=== PATIENT | female | born 1960 | race Caucasian/White ===

== ENCOUNTER 2017-05-05 12:22 | Emergency (ER) | payer OTHER ==
[~2017-05-05] VITALS: Ht 175.3 cm; Wt 89.4 kg
--- OUTSIDE RECORDS SUMMARY | 2017-05-05 12:28 | External Medical Summary Rpt | CCD ---
Author Author , EDDIE MORGAN Address Unknown Phone Purpose Continuity of Care Document - 12-17-2011 through 2016 Problems Code Diagnosis DOS Provider Status 83502 ERRONEOUS ENCOUNTER-- DISREGARD E03.9 Hypothyroid ism, unspecified E11.9 Type 2 diabetes mellitus without complicatio ns E78.5 Hyperlipide kong, unspecified F33.0 Major depressive disorder, recurrent, mild G89.29 Other chronic pain I10 Essential (primary) hypertensio n M54.2 Cervicalgia R92.2 Inconclusiv e mammogram Z13.220 Encounter for screening for lipoid disorders
--- OUTSIDE RECORDS SUMMARY | 2017-05-05 12:28 | External Medical Summary Rpt | CCD ---
Author Author [employer] Organization [employer] Address Unknown Phone Unavailable Purpose Continuity of Care Document - through 2016
--- OUTSIDE RECORDS SUMMARY | 2017-05-05 12:28 | External Medical Summary Rpt | CCD ---
Author Author , EDDIE MORGAN Address Unknown Phone [email or web address] Purpose Continuity of Care Document - 12-17-2011 through 2016 Problems Code Diagnosis DOS Provider Status 63315 ERRONEOUS ENCOUNTER-- DISREGARD E03.9 Hypothyroid ism, unspecified E11.9 Type 2 diabetes mellitus without complicatio ns E78.5 Hyperlipide kong, unspecified F33.0 Major depressive disorder, recurrent, mild G89.29 Other chronic pain I10 Essential (primary) hypertensio n M54.2 Cervicalgia R92.2 Inconclusiv e mammogram Z13.220 Encounter for screening for lipoid disorders
--- OUTSIDE RECORDS SUMMARY | 2017-05-05 12:28 | External Medical Summary Rpt | CCD ---
Demographics Home Phone Preferred Language Indonesian Marital Status Unknown Amish Affiliation Unknown Race Unknown Ethnic Group Unknown Author Author , EDDIE MORGAN Address Unknown Phone [email or web address] Immunization Name Date Rout CVX Reac Dose Comm Prov Is Faci e tion ent ider Refu lity Give sed n Infl 10-1 88 999 Hist D202 No D202 uenz 5-20 oric 94 94 a, 16 al UF Info rmat ion - Sour ce Unsp ecif ied Infl 10-1 88 999 Hist D202 No D202 uenz 5-20 oric 94 94 a, 15 al UF Info rmat ion - Sour ce Unsp ecif ied Td 03-0 9 999 Hist H196 No H196 (naina 5-19 oric lt), 97 al Info adso rmat rbed ion - Sour ce Unsp ecif ied
--- OUTSIDE RECORDS SUMMARY | 2017-05-05 12:28 | External Medical Summary Rpt | CCD ---
Demographics Home Phone Preferred Language Vietnamese Marital Status Unknown Moravian Affiliation Unknown Race Unknown Ethnic Group Unknown Author Author , EDDIE MORGAN Address Unknown Phone [email or web address] Immunization Name Date Rout CVX Reac Dose [...]
--- OUTSIDE RECORDS SUMMARY | 2017-05-05 12:30 | External Medical Summary Rpt ---
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 Plasma TSH Observa Value Referen Units Interpr Notes Date tion ce etation Range Thyrotr 2.090 0.270 - mcIU/mL No No Jul 01 opin 4.200 informa informa 2014 [Units/ tion in tion in 3:50 PM volume] source source in data data Serum or Plasma Lipid Refx Observa Value Referen Units Interpr Notes Date tion ce etation Range Cholest 179 <=200 mg/dL No < 200 Jul 01 travis informa 2015 [Percen tion in 3:50 PM tile] source Desirab data le\.br\ 200 - 239 Borderl ine High\.b r\>= 240 High TRIGLYC 127 <=150 mg/dL No < 150 Jul 01 ERIDES. informa 2015 TOTAL tion in Normal\ 3:50 PM source .br\150 data - 199 Borderl ine High\.b r\200 - 499 High\.b r\ >= 500 Very High CHOLEST 56 >=40 mg/dL No > 60 Jul 01 EROLS.I informa 2015 N HDL tion in Optimal 3:50 PM source \.br\40 data - 60 Accepta ble\.br \ < 40 Low LDL Observa Value Referen Units Interpr Notes Date tion ce etation Range LDL 98 <=100 mg/dL No < 100 Jul 01 Calcula informa 2015 odalys tion in 3:50 PM source Optimal data \.br\10 0 - 129 Near or above optimal \.br\13 0 - 159 Borderl ine High\.b r\160 - 189 High\.b r\ >= 190 Very High Glyco Observa Value Referen Units Interpr Notes Date tion ce etation Range Hemoglo 6.0 <=7.0 % No Initial Aug 12 bin informa 2014 A1c/Hem tion in Diagnos 1:16 PM oglobin source tic .total data Criteri in a\.br\< Blood 5.7 % Normal\ .br\5.7 - 6.4 % At risk for diabete s mellitu s\.br\> = 6.5 % Consist ent with diabete s mellitu s\.br\\ .br\Cynthia betes monitor ing\.br \Target Value (ADA recomme nded): < 7 % Diff Observa Value Referen Units Interpr Notes Date tion ce etation Range Polychr Slight No No No No Aug 10 om informa informa informa informa 2013 tion in tion in tion in tion in 8:15 PM source source source source data data data data Crenate Occasio No No No No Aug 10 d Cell nal informa informa informa informa 2013 tion in tion in tion in tion in 8:15 PM source source source source data data data data Auto Diff Observa Value Referen Units Interpr Notes Date tion ce etation Range Neutrop 64.3 No % No No Aug 10 hils informa informa informa 2013 [#/volu tion in tion in tion in 8:15 PM me] in source source source Blood data data data by Automat ed count Lymphoc 26.8 No % No No Aug 10 ytes informa informa informa 2013 [#/volu tion in tion in tion in 8:15 PM me] in source source source Blood data data data by Automat ed count Monocyt 6.5 No % No No Aug 10 es informa informa informa 2013 [#/volu tion in tion in tion in 8:15 PM me] in source source source Blood data data data by Automat ed count Eos 2.1 No % No No Feb 21 Percent informa informa informa 2013 tion in tion in tion in 8:15 PM source source source data data data Baso 0.3 No % No No Feb 21 Percent informa informa informa 2014 tion in tion in tion in 8:15 PM source source source data data data Neut# 2.4 1.8 - x10(3)/ No No Feb 21 7.7 mcL informa informa 2013 tion in tion in 8:15 PM source source data data Lymph# 1.0 0.6 - x10(3)/ No No Feb 21 4.8 mcL informa informa 2014 tion in tion in 8:15 PM source source data data Fillmore# 0.2 0.0 - x10(3)/ No No Feb 21 1.3 mcL informa informa 2013 tion in tion in 8:15 PM source source data data Eos# 0.1 0.0 - x10(3)/ No No Feb 21 0.5 mcL informa informa 2013 tion in tion in 8:15 PM source source data data Baso# 0.0 0.0 - x10(3)/ No No Feb 21 0.2 mcL informa informa 2013 tion in tion in 8:15 PM source source data data CBC Observa Value Referen Units Interpr Notes Date tion ce etation Range LEUKOCY 3.8 4.0 - x10(3)/ Low No Feb 21 LAURENT 11.0 mcL informa 2013 tion in 8:15 PM source data Erythro 4.44 3.80 - x10(6)/ No No Feb 21 cytes 5.10 mcL informa informa 2013 [#/volu tion in tion in 8:15 PM me] in source source Blood data data by Automat ed count Hemoglo 13.4 12.0 - gm/dL No No Feb 21 bin 15.6 informa informa 2013 [Mass/v tion in tion in 8:15 PM olume] source source in data data Blood Hematoc 39.6 35.7 - % No No Feb 21 rit 45.9 informa informa 2013 [Volume tion in tion in 8:15 PM source source Fractio data data n] of Blood by Automat ed count Erythro 89.1 82.5 - fL No No Aug 10 cyte 99.8 informa informa 2014 mean tion in tion in 8:15 PM corpusc source source ular data data volume [Entiti c volume] by Automat ed count Erythro 30.1 27.0 - pg No No Aug 10 cyte 34.3 informa informa 2014 mean tion in tion in 8:15 PM corpusc source source ular data data hemoglo bin [Entiti c mass] by Automat ed count Erythro 33.8 32.1 - gm/dL No No Aug 10 cyte 35.3 informa informa 2014 mean tion in tion in 8:15 PM corpusc source source ular data data hemoglo bin concent ration [Mass/v olume] by Automat ed count Erythro 14.4 11.5 - % No No Aug 10 cyte 15.0 informa informa 2014 distrib tion in tion in 8:15 PM ution source source width data data [Ratio] by Automat ed count Platele 163 144 - x10(3)/ No No Aug 10 ts 423 mcL informa informa 2013 [#/volu tion in tion in 8:15 PM me] in source source Blood data data by Automat ed count MPV 9.5 6.8 - fL No No Aug 10 10.8 informa informa 2014 tion in tion in 8:15 PM source source data data Free T4 Observa Value Referen Units Interpr Notes Date tion ce etation Range Thyroxi 1.87 0.93 - ng/dL High No Aug 10 ne (T4) 1.70 informa 2014 free tion in 6:13 PM [Mass/v source olume] data in Serum or Plasma Lipid Scr Observa Value Referen Units Interpr Notes Date tion ce etation Range Cholest 161 <=200 mg/dL No < 200 Aug 10 travis informa 2014 [Percen tion in 6:12 PM tile] source Desirab data le\.br\ 200 - 239 Borderl ine High\.b r\>= 240 High TRIGLYC 70 <=150 mg/dL No < 150 Aug 10 ERIDES. informa 2014 TOTAL tion in Normal\ 6:12 PM source .br\150 data - 199 Borderl ine High\.b r\200 - 499 High\.b r\ >= 500 Very High CHOLEST 58 >=40 mg/dL No > 60 Aug 10 EROLS.I informa 2013 N HDL tion in Optimal 6:12 PM source \.br\40 data - 60 Accepta ble\.br \ < 40 Low LDL 89 <=100 mg/dL No < 100 Aug 10 Calcula informa 2014 odalys tion in 6:13 PM source Optimal data \.br\10 0 - 129 Near or above optimal \.br\13 0 - 159 Borderl ine High\.b r\160 - 189 High\.b r\ >= 190 Very High TSH Observa Value Referen Units Interpr Notes Date tion ce etation Range Thyrotr 0.024 0.270 - mcIU/mL Low No Aug 10 opin 4.200 informa 2013 [Units/ tion in 6:13 PM volume] source in data Serum or Plasma HPV Results Observa Value Referen Units Interpr Notes Date tion ce etation Range HPV Thin No No No TEST Apr 5 Specime Prep informa informa informa INFORMA 2013 n tion in tion in tion in TION: 10:18 source source source HPV DNA AM data data data Probe, High Risk, Thin Prep Specime n.\.br\ The High-ri sk HPV test detects HPV genotyp es 16,18,3 1,33,39 ,45,51, 52,58,5 9, and 68, which are associa odalys with cervica l cancer and its precurs or lesions .\.br\H owever, cross-r eaction s with other genotyp es may occur. Results should be correla odalys with cytolog ic and histolo gic finding s.\.br\ This test is an amplfie d DNA signal assay by Praneeth boateng, validat ed by [facility] are Laborat ory in conjunc tion with [employer]. HPV Negativ No No No No Nov 5 HIGH e informa informa informa informa 2013 RISK tion in tion in tion in tion in 10:18 source source source source AM data data data data MM US BREAST LEFT Observa Value Referen Units Interpr Notes Date ti ce etation Range MM US No No No No Toño 10 BREAST informa informa informa informa 2013 LEFT\.b tion in tion in tion in tion in 9:27 AM r\LEFT source source source source BREAST data data data data ULTRASO UND, 12-27-12 :\.br\C omparis on: Same day mammogr ams.\.b r\Histo ry: 52 year old female returns for additio nal views of the left\.b r\breas t for increas ed focal asymmet janeen density in the subareo lar left\.b r\breas t\.br\o n recent screeni ng mammogr am.\.br \Findin gs:\.br \Target ed scannin g of the subareo lar left breast was perform ed by the\.br \sonogr aphcintia and by Dr. Camille pena. There is general ized moderat e dilatat ion\.br \of ducts in the left breast, greates t in the subareo lar and retro-a reolar\ .br\pos itions. These dilated ducts are mostly fluid filled, althoug h several \.br\co ntain a small amount of debris within them.\. br\No solid mass lesion is identif ozzie within these ducts nor in the adjacen t\.br\b reast tissue. A circums cribed oval shaped 8 mm. benign appeari ng cyst is\.br\ noted at the 9:00 positio n of the left breast 4 cm. from the nipple. 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 \.br\No suspici ous solid mass identif ied in the subareo lar left breast. \.br\Re commend ation; The patient should continu e with age-ramon ropriat e\.br\f ollow-u p.\.br\ Annual screeni ng mammogr aphy is recomme nded in one year.\. br\Find ings and recomme ndation s were discuss ed with the patient at the\.br \conclu lucho of the procedu re by Dr. Camille stern\.br\ RECOMME NDATION :\.br\R outine screeni ng mammogr am of both breasts in 1 year.\. br\[place] ge on clinica l grounds . MM MAMMO DIGITAL DIAGNOSTIC LEFT Observa Value Referen Units Interpr Notes Date tion ce etation Range Procedu No No No No Dec 27 re:MM informa informa informa informa 2012 MAMMO tion in tion in tion in tion in 9:12 AM DIGITAL source source source source data data data data DIAGNOS TIC LEFT\.b r\Reaso n for exam: additio nal evaluat ion request ed from abnorma l screeni ng.\.br \MM MAMMO DIGITAL DIAGNOS TIC LEFT\.b r\CC and MLO view(s) were taken of the left breast. \.br\DI AGNOSTI C LEFT MAMMOGR APHY WITH CAD ANALYSI S, 12-27-12 :\.br\C omparis on: Multipl e prior mammogr ams, most recent of which is screeni ng\.br\ mammogr ams from 12-22-12. \.br\Hi story: 52 year old female returns for additio nal views of the left\.b r\breas t for increas ed focal asymmet janeen density in the subareo lar left\.b r\breas t\.br\o n recent screeni ng mammogr am.\.br \Findin gs:\.br \Breast tissue is heterog eneousl y dense, which may lower the sensiti vity of\.br\ mammogr aphy.\. br\On additio nal views of the left breast, which include spot elsi lucho CC\.br\ and MLO views perform ed in the retro-a reolar region, there is persist ent\.br \asymme tric density in the subareo lar left breast. This appears somewha t\.br\t ubular, suggest sarai of duct ectasia . No definit e discret e mass lesion or\.br\ archite ctural distort ion is identif ied.\.b r\IMPRE SSION: Incompl ete-nee d additio nal imaging evaluat ion\.br \(ACR-C ategory -0)\.br \There is persist ent asymmet janeen density in the subareo lar left breast ,\.br\w hich may related to duct ectasia . This will be further assesse d with left\.b r\breas t ultraso und.\.b r\RECOM MENDATI ON:\.br \Ultras ound of the left breast, this ultraso und examina tion was perform ed\.br\ on\.br\ 12-27-12 and will be reporte d separat robinson.\.b r\* The patient with a palpabl e abnorma lity, unexpla ined by breast\ .br\radha ging, should be managed on clinica l basis by the attendi ng physici an.\.br \* Breast imaging has a false negativ e rate of 15%.\.b r\* The patient was notifie d by mail of the results of this examina tion.\. br\*The patient 's informa tion was entered into a [employer] system with a\.br\t arget\. br\due date for the next mammogr am. MM MAMMO DIGITAL SCREENING W CAD BILAT Observa Value Referen Units Interpr Notes Date tion ce etation Range Procedu No No No No Dec 22 re:MM informa informa informa informa 2012 MAMMO tion in tion in tion in tion in 8:04 AM DIGITAL source source source source data data data data SCREENI NG W CAD BILAT\. br\Reas on for exam: history of benign breast biopsy. \.br\MM MAMMO DIG SCREEN CAD BILAT\. br\Bila teral CC and MLO view(s) were taken.\ .br\The breast tissue is heterog eneousl y dense. This may lower the\.br \sensit ivity\. br\of mammogr aphy. There is increas ed focal asymmet janeen density in the\.br \subare olar left breast. Mammogr am of the contral ateral breast reveals no\.br\ evidenc e of maligna ncy. No suspici ous calcifi cations . Compare d to prior\. br\stud ies the most recent being 12-17-11 .\.br\I MPRESSI ON: Incompl ete-nee d additio nal imaging evaluat ion\.br \(ACR-C ategory -0)\.br \RECOMM ENDATIO N:\.br\ Special view mammogr am of the left breast. \.br\* The patient with a palpabl e abnorma lity, unexpla ined by breast\ .br\radha ging, should be managed on clinica l basis by the attendi ng physici an.\.br \* Breast imaging has a false negativ e rate of 15%.\.b r\* The patient was notifie d by mail of the results of this examina tion.\. br\*The patient 's informa tion was entered into a [employer] system with a\.br\t arget\. br\due date for the next mammogr am.\.br \The mammogr am was reviewe d by a Radiolo gist and CAD. MRI CERVICAL SPINE WO CONTRAST Observa Value Referen Units Interpr Notes Date tion ce etation Range TEXT MRI of No No No No Feb 07 DIAGNOS the informa informa informa informa 2011 IS cervica tion in tion in tion in tion in 7:33 AM BATTERY l spine source source source source data data data data without contras t, 02/08/20 12HISTO RY: Neck and left arm pain. Prior spinal fusion. FINDING S:Dayo rison is made with prior cervica l spine MRI dated 10/29/19 09.The cervica l vertebr al bodies are normal in height. The cervica l spinalc ord is normal incalib er and signal. At C2-C3, minimal left paracen tral discoge elham changes are identif ied, whichmi nimally indent the ventral aspect of the thecal sac without evidenc e ofcervi julio écsar cord ornerve root elsi lucho.At C3-C4, mild right paracen tral and right foramin al discoge elham changes are identif ied, whichmi ldly indent the ventral aspect of the thecal sac in a right paracen tralloc ation and causemi ld relativ e narrowi ng of the right C4 neural foramen . There are severed egenera tive changes of the posteri or articul ar facets on the left at the C3-C4 level. There issubse quent moderat eto severe narrowi ng of the left C4 neural foramen on a degener ative basis,u nchange d from priorst udy of 10/29/19.At C4-C5, minimal central discoge elham changes are identif ied, whichmi nimally indent the ventral aspect of the thecal sac without evidenc e of cervica l cord or nerve rootcom pressio n,uncha nged from 10/29/19 study.A t C5-C6, there is evidenc e of prior anterio r discect steve and fusion. Thereis a minimal 1 to 2mm retroli sthesis of C5 on C6, unchang ed. At C5-C6, mild diffuse hypertr ophic spurrin g isident ified, which appears more focally promine nt in a right paracen tral,wh ich mildlyc ompress es the ventral aspect of the thecal sac, slightl y greater [facility] tr[facility] ation and causes bilater al narrowi ng of the C6 neural foramin a, whichis mild to moderat e insever ity, unchang ed from study of 10/29/19.The C6-C7 and C7-T1 interve rtebral disc spaces are normal. IMPRESS ION: Evidenc e of prior anterio r discect steve and fusion at C5-C6.M ild diffuse hypertr ophic spurrin g at C5-C6, which appears more focally promine nt in [facility] paracen tralloc ation, which mildly elsi ses the ventral aspect of the thecal sac,sli ghtly greater in [facility] paracen tral locatio n and causes mild to moderat e narrowi ng of the [id number] l foramin a,uncha nged from prior study of 10/29/19.Othe r milder multile adrian discoge elham changes of the cervica l spine asdescr ibed above. Nodefin ite interva l change from prior study of 10/29/19. MM MAMMO DIGITAL SCREENING W CAD BILAT Observa Value Referen Units Interpr Notes Date tion ce etation Range TEXT Procedu No No No No Dec 16 DIAGNOS re:MM informa informa informa informa 2011 IS MAMMO tion in tion in tion in tion in 3:26 PM BATTERY DIGITAL source source source source data data data data SCREENMariann GREEN W CAD BILATRe ason for exam: maxi green (asympt omatic) .MM MAMMO DIG SCREEN CAD BILATBi lateral CC and MLO view(s) were taken.T here are scatter ed fibrogl andular densiti es. No suspici ouscalc ificati ons.Com pared with prior studies the most recent being 01-13-10 IMPRESS ION: No radiogr aphic evidenc e of maligna ncy(ACR -Catego ry-1)RE COMMEND ATION:R outine maxi green mammogr am in 1 year.* The patient with a palpabl e abnorma lity, unexpla ined by breasti maging, should be managed on clinica l basis by the attendi ng physici an.* Breast imaging has a false negativ e rate of 15%.* The patient was notifie d by mail of the results of this examina tion.*T he patient 's informa tion was entered into a reminde r system with atarget due date for the next mammogr am.The mammogr am was reviewe d by a Radiolo gist and CAD.
--- OUTSIDE RECORDS SUMMARY | 2017-05-05 12:30 | External Medical Summary Rpt ---
[...] 's informa tion was entered into a [employer] system with a [employer]\ .br\due date [...] in 3:15 PM source source data data Callahan# 0.3 0.0 - x10(3)/ No No Feb [...] 's informa tion was entered into a [employer] system with a\.br\t arget\. br\due date [...] 's informa tion was entered into a [employer] system with a\.br\t arget\. br\due date [...] 's informa tion was entered into a [employer] system with a\.br\t arget\. br\due date [...] in 4:20 PM source source data data Callahan# 0.2 0.0 - x10(3)/ No No Jul [...] x10(6)/ No No Jul 01 cytes 5.10 [facility] informa informa 2014 [#/volu tion in tion [...] in 8:15 PM source source data data Callahan# 0.2 0.0 - x10(3)/ No No Feb [...] assay by Praneeth boateng, validat ed by [facility] are Laborat ory in conjunc tion with [employer]. HPV Negativ No No No No Nov [...] 's informa tion was entered into a [address] r system with a\.br\t arget\. br\due date [...] 's informa tion was entered into a [employer] system with a\.br\t arget\. br\due date [...] thecal sac without evidenc e ofcervi julio césar cord ornerve root elsi lucho.At C3-C4, mild [...] the thecal sac, slightl y greater in [facility] par[facility]en tralloc ation and causes bilater [...] which appears more focally promine nt in [facility] par[facility]en tralloc ation, which mildly elsi ses the ventral aspect of the thecal sac,sli ghtly greater in [facility] paracen tral locatio n and causes mild to moderat e narrowi ng of the [id number] l foramin a,uncha nged from prior study [...]
--- NOTE | 2017-05-05 12:59 | Urgent Treatment Center Report ---
History of Present Issue Date/Time Seen by Provider 05/05/17 1230 Visit Reason Pt arrived:Walked Presenting Problem:BURNED RIGHT HAND AT WORK WHEN PICKING UP FOOD Location if Accident:Home Onset of symptoms date/time:05/05/17 or onset unknown for: Have you (or family members/close friends) recently traveled outside the [place]? N If Yes, where/when: Have you had exposure to infectious disease within the past month? TB? Other? Specify: c/o burn to palm of right hand less then 15 minutes ago with blisters. 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 She tried to immediately wipe it off but the cream didn't come off easily. Poured pickle juice on burn then immediately soaked it in ice water and a co-worker drove her straight here. Pain 8-9/10. Doesn't want narcotic. Last tetanus unknown but >5 years ago. Source patient Exam Limitations no limitations ALLERGIES Coded Allergies: No Known Allergies (05/05/17) History Medical History General Hypertension? Yes Hyperlipidemia? Yes Thyroid Problems? Yes More? No Immunization HX DT/Tetanus 5-10 Years Ago Surgical Hx Previous Surgery?Y NECK X 2 RENAL CALCULI HYSTERECTOMY Social History Smoking Hx Smoker: Never Smoker Tobacco: No Type N/A Alcohol Alcohol: No Review of Systems All Other Systems Reviewed and Negative (as appropriate for CC) Constitutional denies fever, denies malaise, denies weakness Respiratory denies shortness of breath Gastrointestinal denies no symptoms reported Musculoskeletal denies joint pain, denies joint swelling Skin change in color (redness right wrist, palm,thmb) Psychiatric/Neurological denies numbness, denies tingling Physical Exam Vital Signs Vital Signs Date Time Temp Pulse Resp B/P Pulse O2 O2 Flow FiO2 Ox Delivery Rate 05/05 1429 97.8 96 18 131/84 99 05/05 1311 18 05/05 1233 97.8 96 18 131/84 99 General Appearance nearly tearful, holding right hand in bowl of ice water Respiratory Status No: respiratory distress. Cardiovascular no peripheral edema Peripheral Pulses Pulses normal Yes (radial) Extremities normal range of motion (right wrist & fingers w/ pain), see skin Neurologic alert, no motor/sensory deficits, oriented x 3 Mental status calm/pleasant Skin superficial partial thickness burn <1% half of right palm (thumb side) and dorsal surface of thumb w/ intact minimally filled blisters; First degree burn to anterior wrist; Good perfusion of dermis w/ intact capillary refill; sensation intact Medical Decision Making LABS/Meds/Orders Pt receiving controlled substance in ED? Yes Howard was queried for this patient? No Reason not queried - hospital network issues Risks/benefits of using a controlled substance for treatment were discussed w/pt by me Results/Orders Current Medication Orders Sig/Horace Start time Last Medication Dose Route Stop Time Status Admin Multi-Ingredient 0 .STK-MED ONE 05/05 1349 DC Ointment TP Bacitracin Zinc 1 INCH ONCE ONE 05/05 1300 DC 05/05 TP 05/05 1301 1311 Cephalexin 500 MG ONCE ONE 05/05 1300 DC 05/05 Monohydrate PO 05/05 1301 1311 Diphtheria/Pertussis/ 0.5 ML ONCE ONE 05/05 1300 DC 05/05 Tetanus Vacc IM 05/05 1301 1311 Ketorolac 60 MG ONCE ONE 05/05 1300 DC 05/05 Tromethamine IM 05/05 1301 1311 Cephalexin 0 .STK-MED ONE 05/05 1257 DC Monohydrate PO Diphtheria/Pertussis/ 0 .STK-MED ONE 05/05 1257 DC Tetanus Vacc IM Ketorolac 0 .STK-MED ONE 05/05 1257 DC Tromethamine .ROUTE Orders Procedure Date/time Status [facility] 05/05 1254 Active Consult MD Physician Consult Consult/PCP Dr. Avilez, ER MD Time Called 1245 Reason Pt. Condition Comments Came to [facility] and assessed pt. VO for keflex, tetanus, toradol, neosporin nonadherent dressing. Gave instructions to pt not to open blisters, leave intact. Change dressing daily. Follow up with primary care. Pt states + understanding. Recommends order for keflex outpt as well and tylenol/motrin for pain control Progress [facility] Progress Notes 1 Date 05/05/17 Time 1347 Comment No improvement in pain. Pt declining offer for additional pain medication. Doesn 't want something even as simple as tylenol. "It will be ok" pt reports as she rubs ice cubes on her palm. [facility] Progress Notes 2 Date 05/05/17 Time 1400 Comment Nurse cleaned w/ hebiclens and NS then applied bacitracin, nonadherent drsg and wrapped. Pt cried out that medication was burning and demanded dressing be removed. Nurse removed dressing and pt cleaned again w/ NS and hebiclens. [facility] Progress Notes 3 Date 05/05/17 Time 1410 Comment Discussed drsg change with pt and her friend at . Pt is eager to return to work today to complete some orders that need completed. She does not want additional pain medication at this time and is hesitant to take any for home. Her and her friend discuss. I rvwd the risk and benefits of narcotics as well as improtance of dressing changes and antibiotic ointment. Pt agreed to take a few narcotics but only plans to use them if tylenol and ibuprofen doesn't help and she is unable to do dressing change. Again offered pain medication while here in clinic but pt declined. Pt prefers to apply nonadherent dressing and gauze for now. Return to work. Finish orders then once home, attempt to apply bacitracin again. Agrees to follow up with PCP for repeat wound check within the next couple of days Departure Departure Time of Disposition 1422 Disposition DC Home or Self Care(routine) Clinical Impression Primary Impression: Superficial partial thickness burn of palm Condition STABLE Referrals NO REFERRAL Follow up with primary care in 2 days for repeat wound evaluation to ensure proper healing, no contractions, no infection. Patient Instructions DI for [place], DI for Prescription Opioid Use, How to Take Care of a Burn Additional Instructions Do NOT open blisters, leave them intact to decrease risk for infection and pain Clean daily w/ mild soap and water. Pat dry. Apply bacitracin. Cover with nonadherent dressing. Wrap with gauze. Do not wrap two fingers together without guaze inbetween to prevent breakdown. range of motion is extremely important. Move, move, move. YOU HAD TdaP vaccine on 05/05/17!!!!!! Discharge Counseling Counseled pt/family regarding diagnosis, R/B of controlled subst., medications/RX, home care, follow up needs Prescriptions Current Visit Scripts HYDROCODONE/ACETAMINOPHEN ([place] 5-325 Tablet) 1 TAB PO TIDP PRN severe pain/ drsg change #9 TAB will cause drowsiness, is a narcotic BACITRACIN ZINC (BACITRACIN ZINC OINT 30GM TUBE) 1 CAROLINE TP DAILY #1 TUBE Ref 2 CEPHALEXIN (Keflex 500MG Capsule) 500 MG PO TID #30 CAP at 3950
--- NOTE | 2017-05-05 12:59 | Urgent Treatment Center Report ---
History of Present Issue Date/Time Seen by Provider 05/05/17 1230 Visit Reason Pt arrived:Walked Presenting Problem:BURNED RIGHT HAND AT WORK WHEN PICKING UP FOOD Location if Accident:Home Onset of symptoms date/time:05/05/17 or onset unknown for: Have you (or family members/close friends) recently traveled outside the [place]? N If Yes, where/when: Have you had exposure to infectious disease within the past month? TB? Other? Specify: c/o burn to palm of right hand less then 15 minutes ago with blisters. 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 She tried to immediately wipe it off but the cream didn't come off easily. Poured pickle juice on burn then immediately soaked it in ice water and a co-worker drove her straight here. Pain 8-9/10. Doesn't want narcotic. Last tetanus unknown but >5 years ago. Source patient Exam Limitations no limitations ALLERGIES Coded Allergies: No Known Allergies (05/05/17) History Medical History General Hypertension? Yes Hyperlipidemia? Yes Thyroid Problems? Yes More? No Immunization HX DT/Tetanus 5-10 Years Ago Surgical Hx Previous Surgery?Y NECK X 2 RENAL CALCULI HYSTERECTOMY Social History Smoking Hx Smoker: Never Smoker Tobacco: No Type N/A Alcohol Alcohol: No Review of Systems All Other Systems Reviewed and Negative (as appropriate for CC) Constitutional denies fever, denies malaise, denies weakness Respiratory denies shortness of breath Gastrointestinal denies no symptoms reported Musculoskeletal denies joint pain, denies joint swelling Skin change in color (redness right wrist, palm,thmb) Psychiatric/Neurological denies numbness, denies tingling Physical Exam Vital Signs Vital Signs Date Time Temp Pulse Resp B/P Pulse O2 O2 Flow FiO2 Ox Delivery Rate 05/05 1429 97.8 96 18 131/84 99 05/05 1311 18 05/05 1233 97.8 96 18 131/84 99 General Appearance nearly tearful, holding right hand in bowl of ice water Respiratory Status No: respiratory distress. Cardiovascular no peripheral edema Peripheral Pulses Pulses normal Yes (radial) Extremities normal range of motion (right wrist & fingers w/ pain), see skin Neurologic alert, no motor/sensory deficits, oriented x 3 Mental status calm/pleasant Skin superficial partial thickness burn <1% half of right palm (thumb side) and dorsal surface of thumb w/ intact minimally filled blisters; First degree burn to anterior wrist; Good perfusion of dermis w/ intact capillary refill; sensation intact Medical Decision Making LABS/Meds/Orders Pt receiving controlled substance in ED? Yes Howard was queried for this patient? No Reason not queried - hospital network issues Risks/benefits of using a controlled substance for treatment were discussed w/pt by me Results/Orders Current Medication Orders Sig/Horace Start time Last Medication Dose Route Stop Time Status Admin Multi-Ingredient 0 .STK-MED ONE 05/05 1349 DC Ointment TP Bacitracin Zinc 1 INCH ONCE ONE 05/05 1300 DC 05/05 TP 05/05 1301 1311 Cephalexin 500 MG ONCE ONE 05/05 1300 DC 05/05 Monohydrate PO 05/05 1301 1311 Diphtheria/Pertussis/ 0.5 ML ONCE ONE 05/05 1300 DC 05/05 Tetanus Vacc IM 05/05 1301 1311 Ketorolac 60 MG ONCE ONE 05/05 1300 DC 05/05 Tromethamine IM 05/05 1301 1311 Cephalexin 0 .STK-MED ONE 05/05 1257 DC Monohydrate PO Diphtheria/Pertussis/ 0 .STK-MED ONE 05/05 1257 DC Tetanus Vacc IM Ketorolac 0 .STK-MED ONE 05/05 1257 DC Tromethamine .ROUTE Orders Procedure Date/time Status [facility] 05/05 1254 Active Consult MD Physician Consult Consult/PCP Dr. Avilez, ER MD Time Called 1245 Reason Pt. Condition Comments Came to [facility] and assessed pt. VO for keflex, tetanus, toradol, neosporin nonadherent dressing. Gave instructions to pt not to open blisters, leave intact. Change dressing daily. Follow up with primary care. Pt states + understanding. Recommends order for keflex outpt as well and tylenol/motrin for pain control Progress [facility] Progress Notes 1 Date 05/05/17 Time 1347 Comment No improvement in pain. Pt declining offer for additional pain medication. Doesn 't want something even as simple as tylenol. "It will be ok" pt reports as she rubs ice cubes on her palm. [facility] Progress Notes 2 Date 05/05/17 Time 1400 Comment Nurse cleaned w/ hebiclens and NS then applied bacitracin, nonadherent drsg and wrapped. Pt cried out that medication was burning and demanded dressing be removed. Nurse removed dressing and pt cleaned again w/ NS and hebiclens. [facility] Progress Notes 3 Date 05/05/17 Time 1410 Comment Discussed drsg change with pt and her friend at . Pt is eager to return to work today to complete some orders that need completed. She does not want additional pain medication at this time and is hesitant to take any for home. Her and her friend discuss. I rvwd the risk and benefits of narcotics as well as improtance of dressing changes and antibiotic ointment. Pt agreed to take a few narcotics but only plans to use them if tylenol and ibuprofen doesn't help and she is unable to do dressing change. Again offered pain medication while here in clinic but pt declined. Pt prefers to apply nonadherent dressing and gauze for now. Return to work. Finish orders then once home, attempt to apply bacitracin again. Agrees to follow up with PCP for repeat wound check within the next couple of days Departure Departure Time of Disposition 1422 Disposition DC Home or Self Care(routine) Clinical Impression Primary Impression: Superficial partial thickness burn of palm Condition STABLE Referrals NO REFERRAL Follow up with primary care in 2 days for repeat wound evaluation to ensure proper healing, no contractions, no infection. Patient Instructions DI for [place], DI for Prescription Opioid Use, How to Take Care of a Burn Additional Instructions Do NOT open blisters, leave them intact to decrease risk for infection and pain Clean daily w/ mild soap and water. Pat dry. Apply bacitracin. Cover with nonadherent dressing. Wrap with gauze. Do not wrap two fingers together without guaze inbetween to prevent breakdown. range of motion is extremely important. Move, move, move. YOU HAD TdaP vaccine on 05/05/17!!!!!! Discharge Counseling Counseled pt/family regarding diagnosis, R/B of controlled subst., medications/RX, home care, follow up needs Prescriptions Current Visit Scripts HYDROCODONE/ACETAMINOPHEN ([place] 5-325 Tablet) 1 TAB PO TIDP PRN severe pain/ drsg change #9 TAB will cause drowsiness, is a narcotic BACITRACIN ZINC (BACITRACIN ZINC OINT 30GM TUBE) 1 CAROLINE TP DAILY #1 TUBE Ref 2 CEPHALEXIN (Keflex 500MG Capsule) 500 MG PO TID #30 CAP at 1675
[2017-05-05] MEDS ORDERED: BACITRACIN OIN TP (14:27)
[2017-05-05] MEDS ORDERED: NORCO 325 MG-51 TAB PO (14:27)
[2017-05-05] MEDS ORDERED: KEFLEX 500MG.500 MG PO (14:28)
[2017-05-05 14:29] VITALS: BP 131/84
== END 2017-05-05 14:30 | disposition home or self-care (01) ==
LOC: UTC 12:22
DX: T23.051A Burn of unspecified degree of right palm, initial encounter (principal); T31.0 Burns involving less than 10% of body surface; X12.XXXA Contact with other hot fluids, initial encounter; Y92.69 Other specified industrial and construction area as the place of occurrence of the external cause; Y99.0 Civilian activity done for income or pay; Z23 Encounter for immunization